=== PATIENT | male | born 1945 | race Caucasian/White ===

== ENCOUNTER 2017-02-24 09:50 | Day surgery (SDC) | payer OTHER ==
[2017-02-24] MEDS ORDERED: LIDOCAINE 1% 300 MG/30 ML SDV ONE (10:15)
[2017-02-24] MEDS ORDERED: LIDOCAINE 1% 300 MG/30 ML SDV IF ONE (10:15)
--- NOTE | 2017-02-24 11:42 | EPPROC ---
Electrophysiology Procedure Note: PROCEDURE PERFORMED: Implantation of [employer] LINQ Implantable Loop Recorder INDICATION: Atrial flutter ablation CHADSVASC = 5, patient had 1 episode of palpitations post AFL ablation, LINQ implanted to assess whether patient is having atrial fibrillation. PROCEDURE NOTE: Patient was in CVC. L parasternal area was prepped and draped. Lidocaine plus bupivacaine was used for local anesthesia. Using provided insertion tool, LINQ device was placed along the 4th intercostal space. Appropriate dressing was applied. Serial Numbers: [employer] Reveal LINQ [id number] Programming: Patient Activated events 3 Auto Activated events 27 (Asystole 3s, HR <40 bpm, >150 bpm ) Patient Problems: Problems Problem Status Onset CAD (coronary artery disease) Acute Atrial flutter Acute
== END 2017-02-24 11:16 | disposition home or self-care (01) ==
LOC: FCATH 09:50
PROVIDERS: ATTEND Internal Medicine Cardiovascular Disease
PROC: 0JH60PZ Insertion of Cardiac Rhythm Related Device into Chest Subcutaneous Tissue and Fascia, Open Approach (ICD-10-PCS; principal; 2017-02-24)
DX: I48.92 Unspecified atrial flutter (principal); I48.91 Unspecified atrial fibrillation; I25.10 Atherosclerotic heart disease of native coronary artery without angina pectoris; E78.2 Mixed hyperlipidemia; E11.9 Type 2 diabetes mellitus without complications; I10 Essential (primary) hypertension; Z95.1 Presence of aortocoronary bypass graft
CPT/HCPCS: C1764